=== PATIENT | female | born 1955 | race Caucasian/White ===

== ENCOUNTER 2017-05-11 11:31 | Emergency (ER) | payer BC ==
[~2017-05-11] VITALS: Ht 165.1 cm; Wt 86.2 kg
[2017-05-11 12:42] LABS: INFLUENZA A PATIENT NEGATIVE (NEGATIVE); INFLUENZA B PATIENT NEGATIVE (NEGATIVE)
[2017-05-11] MEDS ORDERED: methylPREDNISolone SOD SUCC PF 40 MG/ML VIAL. IM ONE (14:00)
[2017-05-11] MEDS ORDERED: methylPREDNISolone SOD SUCC PF 40 MG/ML VIAL. IV ONE (14:00)
[2017-05-11 14:10] VITALS: BP 147/76
[2017-05-11] MEDS ORDERED: ONDANSETRON ODT 4 MG TAB.RAPDIS PO ONE (14:15)
--- NOTE | 2017-05-11 14:15 | PHYS DOC ---
Past History Past Medical History: Other Past Surgical History: No Surgical History Alcohol Use: None Drug Use: None Adult General Chief Complaint Chief Complaint: DIZZY/LIGHT HEADED HPI HPI Patient is a 62 year old F who presents with nasal congestion, ear pain and dizziness over the past 2-3 days. Jesenia was seen by her primary care doctor earlier today and was diagnosed with a viral upper respiratory infection. After being seen she went home and took the recommended medications which included Claritin-D and meclizine. Thereafter she had nausea and vomiting. Her dizziness remains unchanged. She describes her dizziness as lightheaded and only noticeable when she moves her head. She feels that her symptoms are significantly improved when she does not move her head. She denies headache, numbness/tingling and weakness. She denies any other associated symptoms. She denies any other exacerbating or alleviating factors. Review of Systems Review of Systems Constitutional: Denies fever or chills [] Eyes: Denies change in visual acuity, redness, or eye pain [] HENT: nasal congestion Respiratory: Denies shortness of breath [] Cardiovascular: No additional information not addressed in HPI [] GI: Denies abdominal pain, nausea, vomiting, bloody stools or diarrhea [] : Denies dysuria or hematuria [] Musculoskeletal: Denies back pain or joint pain [] Integument: Denies rash or skin lesions [] Neurologic: Denies headache, focal weakness or sensory changes [] Endocrine: Denies polyuria or polydipsia [] All other systems were reviewed and found to be within normal limits, except as documented in this note. Family History Family History No pertinent family medical history was reported Current Medications Current Medications Current Medications Medications (Trade) Dose Ordered Sig/Felicia Start Time Stop Time Status Last Admin Dose Admin Methylprednisolone Sodium Succinate (SOLU-Medrol 40MG VIAL) 40 mg 1X ONCE 05/11/17 14:00 05/11/17 14:01 DC 05/11/17 14:05 40 MG Allergies Allergies Allergies Coded Allergies Type Severity Reaction Last Updated Verified No Known Drug Allergies 05/11/17 No Physical Exam Physical Exam Constitutional: Well developed, well nourished, no acute distress, non-toxic appearance. HENT: Normocephalic, atraumatic, mild to moderate nasal mucosa erythema and edema mucous noted. TMs bilaterally clear with possible clear fluid noted behind the right TM Eyes: PERRLA, EOMI, conjunctiva normal, no discharge. [] Neck: Normal range of motion, no tenderness, supple, no stridor. [] Cardiovascular:Heart rate regular rhythm, Lungs & Thorax: Bilateral breath sounds clear to auscultation [] Abdomen: Bowel sounds normal, soft, no tenderness, no masses, no pulsatile masses. [] Skin: Warm, dry, no erythema, no rash. [] Back: No tenderness, no CVA tenderness. [] Extremities: No tenderness, no cyanosis, no clubbing, ROM intact, no edema. [] Neurologic: Alert and oriented X 3, normal motor function, normal sensory function, no focal deficits noted. [] Psychologic: Affect normal, judgement normal, mood normal. [] Current Patient Data Vital Signs Vital Signs Date Time Temp Pulse Resp B/P (MAP) Pulse Ox O2 Delivery O2 Flow Rate FiO2 05/11/17 13:04 98.2 74 18 148/75 (99) 97 Room Air Lab Results Laboratory Tests Test 05/11/17 12:05 Influenza Type A (Rapid) Negative (NEGATIVE) Influenza Type B (Rapid) Negative (NEGATIVE) EKG EKG [] Radiology/Procedures Radiology/Procedures [] Course & Med Decision Making Course & Med Decision Making Pertinent Labs and Imaging studies reviewed. (See chart for details) Jesenia symptoms were most consistent with a viral labyrinthitis versus other inflammatory response. She does have a history of URI to us as well as unexplained neuropathy. This may be secondary to an autoimmune disease but more commonly/likely this is related to a viral respiratory infection. She did have moderate improvement after a single dose of Solu-Medrol IM. She was discharged in stable condition after monitoring for greater than 2 hours Dragon Disclaimer Dragon Disclaimer This electronic medical record was generated, in whole or in part, using a voice recognition dictation system. Departure Departure: Impression: Primary Impression: Labyrinthitis of right ear Additional Impression: Viral upper respiratory infection Disposition: 01 HOME, SELF-CARE Condition: STABLE Referrals: [facility]OLCOM[facility] (PCP) Patient Instructions: Labyrinthitis (Inner Ear Inflammation)-Brief, Upper Respiratory Infection, Adult Additional Instructions: Jesenia was seen in the emergency department for dizziness, nausea and ear discomfort. No emergency medical condition was found on history or physical exam. Her symptoms are most consistent with a viral respiratory infection associated with labyrinthitis. She is advised to use nasal saline rinses regularly. She was given prescriptions for nasal steroid spray and oral steroids. She was also encouraged to use ibuprofen to manage her symptoms. Scripts Ondansetron (ZOFRAN ODT) 4 Mg Tab.rapdis 1 TAB SL Q8HRS, #15 TAB Prov: MAIDA CHU MD 05/11/17 Prednisone (PREDNISONE) 10 Mg Tablet 10 MG PO DAILY for 5 Days, #5 TAB Prov: MAIDA CHU MD 05/11/17 Fluticasone Propionate (Flonase Allergy Relief) 9.9 Ml [place].susp 1 SPRAYS NS BID for 7 Days, BOTTLE Prov: MAIDA CHU MD 05/11/17 Problem Qualifiers MAIDA CHU MD May 11, 2017 14:15
[2017-05-11] MEDS ORDERED: FLUT9.9S NS (14:19)
[2017-05-11] MEDS ORDERED: PRED-220 PO (14:19)
[2017-05-11] MEDS ORDERED: ONDA4TAB10 SL (14:21)
== END 2017-05-11 14:45 | disposition home or self-care (01) ==
LOC: ER 11:31
DX: J06.9 Acute upper respiratory infection, unspecified (principal); H83.01 Labyrinthitis, right ear; B97.89 Other viral agents as the cause of diseases classified elsewhere
CPT/HCPCS: 87804; 96372; 99284; J2920; Q0162